=== PATIENT | male | born 1945 | race Caucasian/White ===

== ENCOUNTER 2020-03-10 21:00 | Emergency (ER) | payer OTHER, SELFPAY ==
[2020-03-10 21:05] VITALS: BP 170/77; PULSE 98; RESP 15; TEMP 36.8; O2SAT 100; BMI 36.1
--- NOTE | 2020-03-10 21:35 | PC.NURSE ---
Pt's cath was clogged, flushed catheter with 25ml of normal saline, and was able to withdraw same amount with noted blood clots in syringe. Armenta draining at this time strawberry colored urine. Placed night bag after flushing.
--- NOTE | 2020-03-10 21:36 | ED.GENADULT ---
HPI - General Adult General Chief complaint: Urogenital-Male Stated complaint: catheter problems, cant pee Time Seen by Provider: 03/10/20 21:10 Source: patient and family Mode of arrival: Ambulatory Limitations: no limitations History of Present Illness HPI narrative: Patient is a 74-year-old male. Has an indwelling Armenta catheter secondary to urinary retention. The catheter that he presents with today was placed approximately 24 hours ago at an outside facility for this. He has had urinary retention in the past and has had catheters in the past. Is scheduled to see a urologist next week. Patient states that he has had some blood in his catheter. Has been unable to urinate and has no output from his catheter for the past several hours. Started to get lower abdominal tenderness. No vomiting. He did not think that the catheter placement yesterday was specially traumatic however he did state that it was uncomfortable. Review of Systems Constitutional Constitutional: Denies fever(s) Gastrointestinal Gastrointestinal: Reports abdominal pain, Denies nausea and Denies vomiting Genitourinary Comments: Hematuria, urinary catheter not draining Integumentary/Breasts Skin/Breast: Denies rash Hematologic/Lymphatic Hematologic/Lymphatic: Denies easy bleeding and Denies easy bruising Allergic/Immunologic Allergic/Immunologic: Denies urticaria Patient History Medical History Acute urinary retention (Inactive) Social History Smoking Status: Never smoker Smoking Status: Never smoker alcohol intake frequency: 0-2 drinks per day Substance Use Type: does not use Exam Initial Vital Signs Initial Vital Signs: Vital Signs Temperature 98.2 F 03/10/20 21:05 Pulse Rate 98 H 03/10/20 21:05 Respiratory Rate 15 03/10/20 21:05 Blood Pressure 170/77 H 03/10/20 21:05 Pulse Oximetry 100 03/10/20 21:05 Const General: cooperative and comfortable HENMT Head: normocephalic Resp Effort & Inspection: normal respiratory effort Cardio Rate: regular rate GI Inspection: non-distended Palpation: soft Other: Indwelling catheter in place Skin Lesions: no lesions Rashes: no rashes Neuro General: patient alert and patient awake Cognition: normal cognition Speech: speech normal Extrem General: normal to inspection Psych Appearance: grossly normal and well kempt Course Vital Signs Vital signs: Vital Signs - 8 hr 03/10/20 21:05 03/10/20 21:56 Temperature 98.2 F Pulse Rate 98 H 80 Respiratory Rate 15 20 Blood Pressure 170/77 H 116/64 Pulse Oximetry 100 97 Medical Decision Making MDM Narrative Medical decision making narrative: Patient's urinary catheter was flushed by nursing with return of multiple clots. Afterwards it was draining and did appear to have blood in it. Will hold on a urinalysis for now. Patient states he feels much better after this. I did discuss hematuria with him especially in the setting of a catheter. I did not feel that replacing the catheter today as needed. He was given return precautions. He does have a follow-up with Urology or any scheduled. He expressed understanding and agreement. Discharge Plan Departure Patient Disposition: Home Clinical Impression: Acute urinary retention Complication of Armenta catheter Qualifiers: Encounter type: initial encounter Qualified Code(s): T83.9XXA - Unspecified complication of genitourinary prosthetic device, implant and graft, initial encounter Hematuria Qualifiers: Hematuria type: gross Qualified Code(s): R31.0 - Gross hematuria Discharge Date/Time: 03/10/20 22:00 Instructions: How to Care for Your Armenta Catheter -- Male Activity Restrictions/Additional Instructions: Recommend that you stay hydrated. Keep all of your scheduled medical appointments. Continue all of your medications as directed. Return to the emergency department for any new or worsening symptoms
[2020-03-10 21:56] VITALS: BP 116/64; PULSE 80; RESP 20; O2SAT 97
== END 2020-03-10 22:00 | disposition home or self-care (01) ==
PROVIDERS: Emergency Provider Emergency Medicine
DX: R33.8 Other retention of urine (principal); R31.0 Gross hematuria; T83.9XXA Unspecified complication of genitourinary prosthetic device, implant and graft, initial encounter
CPT/HCPCS: 99281